=== PATIENT | male | born 1990 | race Caucasian/White ===

== ENCOUNTER 2019-01-26 07:37 | Outpatient (CLI) | payer OTHER ==
--- NOTE | 2019-01-26 09:27 | MRI ---
MRI LUMBAR SPINE NONCONTRAST: HISTORY: Disc herniation. Right-sided back pain. Pain radiates down the right leg into the right foot. Burning sensation. COMPARISON: None. FINDINGS: Appropriate T1 marrow signal intensity of the lumbar vertebrae. Lumbar spine vertebral body height is maintained. No fracture. Straightening of normal lumbar lordosis. No significant STIR hyperintensity to suggest vertebral body edema or ligamentous injury. Appropriate signal intensity of the visualized solid organs and paraspinal muscles. Conus medullaris terminates at the mid T12 level. T12-L1:Adequate disc hydration. No significant central canal stenosis or significant neural foraminal narrowing. L1-L2:Adequate disc hydration. No significant canal stenosis or significant neural foraminal. L2-L3:Adequate disc hydration. No significant central canal stenosis or significant neural foraminal. L3-L4:Adequate disc hydration. No significant canal stenosis or significant neural foraminal narrowin g. L4-L5:Broad-based disc bulge with a central/right subarticular disc herniation. There is ligamentum f lavum thickening and facet hypertrophy. There is severe central canal stenosis. Narrowing of both subarticular zones, right greater than left. Obscuration of bilateral traversing L5 nerve roots, righ t greater than left. Mild right neural foraminal narrowing. Mild left foraminal narrowing. L5-S1:Adequate disc hydration. No significant central canal stenosis or significant neural foraminal narrowing. IMPRESSION: L4-L5 disc herniation. There is severe central canal stenosis. Results study discussed with [facility] care provider 01/26/2019 at 9:26 AM. Code CR Transcribed Date/Time: 01/26/2019 9:43 AM
== END 2019-01-26 07:38 | disposition home or self-care (01) ==
LOC: TBSIIMAG 07:37
PROVIDERS: ATTEND Nurse Practitioner Family
DX: Z87.39 Personal history of other diseases of the musculoskeletal system and connective tissue (principal); M51.26 Other intervertebral disc displacement, lumbar region; M48.061 Spinal stenosis, lumbar region without neurogenic claudication
CPT/HCPCS: 72148

== ENCOUNTER 2019-02-09 07:29 | Day surgery (SDC) | payer OTHER ==
[2019-02-04 09:13] VITALS: BMI 26.4
[2019-02-09 08:15] LABS: #Basophils 0.1 thou/uL (0.0-0.2); #Eosinphils 0.1 thou/uL (0.0-0.7); #Lymphocytes 2.4 thou/uL (1.20-3.40); #Monocytes 0.7 thou/uL (0.11-0.59); #Neutrophils 4.2 thou/uL (1.40-6.50); %Basophils 1.7 % (0.0-1.0); %Eosinophils 1.1 % (0.0-10.0); %Lymphocytes 31.6 % (21.0-51.0); %Monocytes 9.1 % (0.0-10.0); %Neutrophils 56.6 % (42.0-75.0); Hemoglobin 17.2 g/dL (14.0-18.0); Mean Corpuscular HGB CONC 34.5 g/dL (32.0-36.0); Mean Corpuscular Volume 89.9 fL (78.0-98.0); Mean Platelet Volume 7.4 fL (7.4-10.4); Platelet Count 283 thou/uL (130-400); RBC Distribution Width 11.9 % (11.5-14.5); Red Blood Cell (RBC) Count 5.56 mill/uL (4.70-6.10); White Blood Cell (WBC) Count 7.5 thou/uL (4.8-10.8)
[2019-02-09 08:42] LABS: Anion Gap 12 mmol/L (10-20); BUN (Urea Nitrogen) 17 mg/dL (8.9-20.6); Calc. Creatinine Clearance 137 mL/min (70-130); Carbon Dioxide 32 mmol/L (22-29); Chloride 100 mmol/L (98-107); Estimated GFR-MDRD 87; Glucose 81 mg/dL (70-105); Potassium 3.7 mmol/L (3.5-5.1); Sodium 140 mmol/L (136-145)
[2019-02-09] MEDS ORDERED: Fentanyl 100 MCG/2 ML VIAL ONE ×2 (10:06→12:26)
[2019-02-09] MEDS ORDERED: Midazolam HCl 2 mg/2 ml Vial ONE (10:06)
--- NOTE | 2019-02-09 11:49 | OP ---
DATE OF PROCEDURE: 02/09/2019 FLOOR RUNNER: Kailyn Beck PA-C PROCEDURE PERFORMED: Right L4-L5 microdiskectomy. DESCRIPTION OF PROCEDURE: The patient was brought to the operating room and intubated. He was rolled in a prone position on gel-filled chest rolls. An incision was made exposing right L4-L5 and the level was confirmed by x-ray. We performed a right L4-L5 hemilaminectomy, identified the right L5 nerve root and beneath this was a large extruded disk herniation. This was removed in one large fragment and then additional small fragments were removed. A complete decompression of right L5 was achieved. The wound was extensively irrigated. MAC hemostasis was secured. Vancomycin powder was applied and the wound was closed in anatomic layers. Job ID: [id number]
[2019-02-09] MEDS ORDERED: HYDROcodone/Acetaminophen 5/325 mg Tablet ONE (13:42)
[2019-02-09] MEDS ORDERED: Ondansetron PF 4 MG/2 ML Vial ONE (14:01)
[2019-02-09] MEDS ORDERED: Ketorolac Tromethamine 30 MG/ML VIAL ONE (14:01)
[2019-02-09] MEDS ORDERED: Rocuronium Bromide 10 MG/ML (10ML VIAL) ONE (14:01)
[2019-02-09] MEDS ORDERED: Lidocaine 1% PF 5 ML VIAL ONE (14:01)
[2019-02-09] MEDS ORDERED: Glycopyrrolate 0.2 MG/ML 5 ML SYRINGE ONE (14:01)
[2019-02-09] MEDS ORDERED: Dexamethasone 20 MG/5 ML VIAL ONE (14:01)
[2019-02-09] MEDS ORDERED: PROPOFOL 200 MG/20 ML VIAL ONE (14:01)
== END 2019-02-09 14:30 | disposition home or self-care (01) ==
LOC: SDC 07:29
PROVIDERS: ATTEND Neurological Surgery
PROC: 0SB23ZZ Excision of Lumbar Vertebral Disc, Percutaneous Approach (ICD-10-PCS; principal; 2019-02-09)
DX: M51.16 Intervertebral disc disorders with radiculopathy, lumbar region (principal); F41.8 Other specified anxiety disorders; F32.9 Major depressive disorder, single episode, unspecified; Z79.899 Other long term (current) drug therapy
CPT/HCPCS: 36415; 76000; 80048; 85025; 93005; 93010; J0690; J1100; J1885; J2001; J2250; J2405; J2704; J3010; J3370